=== PATIENT | female | born 1940 | race Caucasian/White ===

== ENCOUNTER 2018-11-25 12:37 | Emergency (ER) | payer MEDICARE, BC ==
[~2018-11-25] VITALS: Ht 165.1 cm; Wt 90.9 kg
[~2018-11-25 12:37] MED LIST: ASPI-1009 PO; ATOR10TA87 PO; COR3.125T PO; CYCL-1 PO; DIPH-423 PO; OMEP40CA37 PO; VALS40TA2 PO
--- NOTE | 2018-11-25 14:35 | NUR ---
C/O COUGH X 2 WEEKS. HAS BEEN TAKING COUGH MEDICATIONS WITHOUT RELIEF. WENT TO WALK-IN CLINIC ON SUNDAY AND HAS BEEN TAKING ANTIBIOTICS SINCE SUNDAY WITH OUT RELIEF. COUGHING UP YELLOW-WHITE PHLEGM. MILD SOB NOTED. HX WI IN 2012. HX HYPOTHYROID AND HTN.
[2018-11-25] MEDS ORDERED: ipratropium/albuterol 3ml nebule NEB ONE (14:55)
[2018-11-25] MEDS ORDERED: dexamethasone 4mg tablet PO ONE (14:55)
[2018-11-25] MEDS ORDERED: ALBU6.7H INH (15:28)
[2018-11-25] MEDS ORDERED: PRED20TA PO (15:28)
[2018-11-25] MEDS ORDERED: albuterol 2.5 MG/3 ML nebule CONTNEB PRN (15:30)
[2018-11-25] MEDS: benzonatate 100mg capsule PO ONE ×2 (16:56→17:07)
[2018-11-25 17:20] VITALS: BP 166/87
== END 2018-11-25 17:23 | disposition home or self-care (01) ==
LOC: ER 12:37
DX: J20.9 Acute bronchitis, unspecified (principal); E78.00 Pure hypercholesterolemia, unspecified; I10 Essential (primary) hypertension; E07.9 Disorder of thyroid, unspecified; Z88.2 Allergy status to sulfonamides; Z79.82 Long term (current) use of aspirin; Z79.899 Other long term (current) drug therapy
CPT/HCPCS: 71046; 93005; 94640; 94644; 94760; 99285; J8540; 99283

== ENCOUNTER 2019-02-26 11:17 | Inpatient (IN) | payer MEDICARE, BC ==
[~2019-02-26] VITALS: Ht 167.6 cm; Wt 90.9 kg
[~2019-02-26 11:17] MED LIST changes: +ALBU6.7H9 INH; +OMEP40CA13 PO; -OMEP40CA37 PO
--- NOTE | 2019-02-26 11:27 | NUR ---
CONSULTED DR. MCLEOD BEFORE ORDERS IN.
[2019-02-26 11:59] LABS: BASOPHILS # (AUTO) 0.1 X10'3 (0-0.2); BASOPHILS % (AUTO) 0.9 % (0-1); EOSINOPHILS # (AUTO) 0.2 X10'3 (0-0.9); EOSINOPHILS % (AUTO) 1.4 % (0-6); HEMATOCRIT 40.1 % (35.0-45.0); HEMOGLOBIN 13.6 g/dl (12.0-16.0); LYMPHOCYTES # (AUTO) 3.3 X10'3 (1.1-4.8); LYMPHOCYTES % (AUTO) 29.4 % (21-51); MEAN CORPUSCULAR HEMOGLOBIN 30.1 PG (27.0-31.0); MEAN CORPUSCULAR VOLUME 88.5 FL (78-98); MEAN PLATELET VOLUME 8.2 FL (7.4-10.4); MONOCYTES # (AUTO) 0.6 X10'3 (0-0.9); MONOCYTES % (AUTO) 5.6 % (2-12); NEUTROPHILS % (AUTO) 62.7 % (42-75); PLATELET COUNT 296 X10'3 (140-440); RED BLOOD COUNT 4.53 X10'6 (4.20-5.60); RED CELL DISTRIBUTION WIDTH 15.2 % (11.5-14.5); WHITE BLOOD COUNT 11.2 X10'3 (4.5-11.0)
[2019-02-26 12:14] LABS: ALANINE AMINOTRANSFERASE 22 U/L (12-78); ALBUMIN 3.3 G/DL (3.4-5.0); ALBUMIN/GLOBULIN RATIO 0.8 (1.1-1.5); ALKALINE PHOSPHATASE 173 IU/L (46-116); ANION GAP 10 (8-16); ASPARTATE AMINO TRANSFERASE 10 U/L (10-37); BILIRUBIN,TOTAL 0.2 MG/DL (0.1-1.0); BLOOD UREA NITROGEN 15 MG/DL (7-18); BUN/CREATININE RATIO 13.4 (6.6-38.0); CALCIUM 8.7 MG/DL (8.5-10.1); CHLORIDE 108 MMOL/L (99-107); CREATININE 1.12 MG/DL (0.40-0.90); GLUCOSE 127 MG/DL (70-104); SODIUM 144 MMOL/L (135-145); TOTAL CARBON DIOXIDE 25.8 MMOL/L (24-32); TOTAL PROTEIN 7.3 G/DL (6.4-8.2); eGFR 47 ML/MIN
[2019-02-26 12:17] LABS: PARTIAL THROMBOPLASTIN TIME 24 SECONDS (22-32); TROPONIN I < 0.04 NG/ML (0.0-0.05)
[2019-02-26] MEDS ORDERED: LEVO125T PO (13:10)
[2019-02-26] MEDS ORDERED: ATOR10TA70 PO (13:10)
--- NOTE | 2019-02-26 13:11 | NUR ---
TELE NEURO CONSULT INITIATED
--- NOTE | 2019-02-26 13:16 | NUR ---
PATIENT'S DAUGHTER'S PHONE NUMBER: [phone] WOULD LIKE TO BE CALLED IF PATIENT IS ADMITTED.
--- NOTE | 2019-02-26 17:35 | NUR ---
REPORT ATTEMPTED, FLOOR TO CALL BACK WHEN ROOM ASSIGNED RN
--- NOTE | 2019-02-26 17:50 | NUR ---
PT BEING TAKEN TO MRI
[2019-02-26 19:30] VITALS: BP 169/95
[2019-02-26] MEDS: levoTHYROXINE 125mcg tablet PO SCH (19:40)
[2019-02-26] MEDS: atorvastatin 20mg tablet PO SCH (20:30)
[2019-02-26] MEDS: aspirin 325mg tablet PO SCH (20:30)
[2019-02-26] MEDS ORDERED: FLU VACC QS2019-20(6MOS UP)/PF 60 MCG/0.5 ML SYRINGE IMVAC ONE (20:45)
[2019-02-26 22:28] VITALS: BP 145/84
[2019-02-27 03:00] VITALS: BP 173/84
[2019-02-27 06:00] VITALS: BP 183/87
--- NOTE | 2019-02-27 06:18 | NUR ---
Problems reprioritized. Patient report given, questions answered & plan of care reviewed with BOB Escobar.
[2019-02-27 06:20] LABS: BASOPHILS # (AUTO) 0.1 X10'3 (0-0.2); EOSINOPHILS # (AUTO) 0.2 X10'3 (0-0.9); EOSINOPHILS % (AUTO) 1.6 % (0-6); HEMATOCRIT 37.8 % (35.0-45.0); HEMOGLOBIN 12.9 g/dl (12.0-16.0); MEAN CORPUSCULAR HEMOGLOBIN 30.2 PG (27.0-31.0); MEAN CORPUSCULAR HGB CONC 34.2 g/dL (33.0-36.5); MEAN CORPUSCULAR VOLUME 88.2 FL (78-98); MEAN PLATELET VOLUME 8.5 FL (7.4-10.4); MONOCYTES # (AUTO) 0.6 X10'3 (0-0.9); MONOCYTES % (AUTO) 6.1 % (2-12); NEUTROPHILS # (AUTO) 5.8 X10'3 (1.8-7.7); NEUTROPHILS % (AUTO) 60.3 % (42-75); PLATELET COUNT 268 X10'3 (140-440); RED BLOOD COUNT 4.29 X10'6 (4.20-5.60); WHITE BLOOD COUNT 9.6 X10'3 (4.5-11.0)
--- NOTE | 2019-02-27 06:28 | NUR ---
Patient in room ORTHO 4010. I have received report from Ligia RN and Geoff RN and had the opportunity to ask questions and assume patient care.
[2019-02-27 06:39] LABS: ALBUMIN 2.9 G/DL (3.4-5.0); ANION GAP 8 (8-16); BLOOD UREA NITROGEN 16 MG/DL (7-18); CHLORIDE 110 MMOL/L (99-107); CREATININE 0.94 MG/DL (0.40-0.90); GLUCOSE 94 MG/DL (70-104); POTASSIUM 3.8 MMOL/L (3.5-5.1); SODIUM 145 MMOL/L (135-145); TOTAL CARBON DIOXIDE 26.7 MMOL/L (24-32); eGFR 57 ML/MIN
[2019-02-27 06:40] LABS: LDL CHOLESTEROL 76 MG/DL (50-100)
[2019-02-27] MEDS: aspirin 325mg tablet PO SCH (07:29)
[2019-02-27] MEDS: levoTHYROXINE 125mcg tablet PO SCH (07:29)
[2019-02-27] MEDS: atorvastatin 20mg tablet PO SCH (07:29)
[2019-02-27] MEDS ORDERED: pantoprazole 40mg Tablet.DR PO SCH (07:30)
[2019-02-27 10:00] VITALS: BP 140/83
--- NOTE | 2019-02-27 10:46 | NUR ---
Student documentation: I have reviewed all interventions, assessments performed and documented by [facility]. Student Medication Administration: For this medication-pass time frame, all medication were reviewed, dispensed, administered and documented per hospital policy by [facility].
[2019-02-27] MEDS ORDERED: ASPI-1 PO (14:55)
--- NOTE | 2019-02-27 16:30 | NUR ---
patient safe DC with family in personal vehicle.
== END 2019-02-27 15:30 | disposition home or self-care (01) | DRG 149 ==
LOC: ER 11:18 → ED HOLD 15:12 → ORTHO 4S 19:18
PROVIDERS: ADMIT Internal Medicine; ATTEND Internal Medicine
DX: R42 Dizziness and giddiness (principal); H57.02 Anisocoria; E03.9 Hypothyroidism, unspecified; E78.00 Pure hypercholesterolemia, unspecified; E78.5 Hyperlipidemia, unspecified; I10 Essential (primary) hypertension; I67.9 Cerebrovascular disease, unspecified; I73.9 Peripheral vascular disease, unspecified; K21.9 Gastro-esophageal reflux disease without esophagitis; R26.89 Other abnormalities of gait and mobility; Z88.2 Allergy status to sulfonamides; Z79.82 Long term (current) use of aspirin; Z79.899 Other long term (current) drug therapy; Z90.710 Acquired absence of both cervix and uterus; Z90.49 Acquired absence of other specified parts of digestive tract
CPT/HCPCS: 36415; 70450; 70544; 70547; 70551; 71045; 80048; 80053; 82948; 83721; 84484; 85025; 85610; 85730; 87081; 93005; 93306; 99285; G0378

== ENCOUNTER 2020-03-10 08:23 | Emergency (ER) | payer MEDICARE, BC ==
[~2020-03-10] VITALS: Ht 165.1 cm; Wt 90.9 kg
[~2020-03-10 08:23] MED LIST changes: -ALBU6.7H9 INH; +ASPI-1 PO; -ASPI-1009 PO; +ATOR10TA70 PO; -ATOR10TA87 PO; -COR3.125T PO; -CYCL-1 PO; -DIPH-423 PO; +LEVO125T PO; -VALS40TA2 PO
[2020-03-10 08:48] VITALS: BP 125/80
[2020-03-10] MEDS ORDERED: BENZ-16 PO (09:14)
[2020-03-10] MEDS ORDERED: ONDA4TAB6 PO (09:14)
== END 2020-03-10 09:33 | disposition home or self-care (01) ==
LOC: ER 08:24
DX: U07.1 COVID-19 (principal); R50.9 Fever, unspecified; R51.9 Headache, unspecified; R05 Cough; R11.0 Nausea; E78.00 Pure hypercholesterolemia, unspecified; I10 Essential (primary) hypertension; Z88.2 Allergy status to sulfonamides; Z79.82 Long term (current) use of aspirin; Z79.899 Other long term (current) drug therapy
CPT/HCPCS: 36415; 87635; 99283; C9803

== ENCOUNTER 2023-12-31 08:20 | Day surgery (SDC) | payer MEDICARE, BC ==
[~2023-12-31] VITALS: Ht 165.1 cm; Wt 87.2 kg
[~2023-12-31 08:20] MED LIST changes: -ASPI-1 PO; -ATOR10TA70 PO; +MULT-1085 PO; -OMEP40CA13 PO; +OMEP40CA21 PO; +ONDA4TAB6 PO
[2023-12-31 08:49] VITALS: BP 157/86; PULSE 74; RESP 20
[2023-12-31 09:35] VITALS: BP 125/77; PULSE 66; RESP 16; O2SAT 96
[2023-12-31] MEDS ORDERED: fentaNYL/PF 50MCG/1 ML 2ML syringe ONE (09:35)
[2023-12-31] MEDS ORDERED: midazolam 1 mg/ML 2ml injection ONE (09:35)
[2023-12-31 09:45] VITALS: BP 140/75; PULSE 66; RESP 14; O2SAT 96
[2023-12-31 09:55] VITALS: BP 154/88; PULSE 68; RESP 16; O2SAT 96
[2023-12-31 10:05] VITALS: BP 150/89; PULSE 67; RESP 14; O2SAT 96
== END 2023-12-31 10:15 | disposition home or self-care (01) ==
LOC: GI LAB 08:20
PROVIDERS: ATTEND Internal Medicine Gastroenterology
DX: R13.10 Dysphagia, unspecified (principal); K21.9 Gastro-esophageal reflux disease without esophagitis; K29.70 Gastritis, unspecified, without bleeding; I10 Essential (primary) hypertension; E11.9 Type 2 diabetes mellitus without complications; Z88.2 Allergy status to sulfonamides
CPT/HCPCS: 43239; A4620; J2250; J3010; J7030; Z7512; 88305; J7120

== ENCOUNTER 2024-02-13 15:02 | Emergency (ER) | payer MEDICARE, BC ==
[~2024-02-13] VITALS: Ht 165.1 cm; Wt 86.4 kg
[2024-02-13 15:12] VITALS: TEMP 98.4
[2024-02-13] MEDS ORDERED: HYDR-3965 PO (16:29)
[2024-02-13] MEDS: ondansetron/PF 4mg/2ml inj IV ONE (16:39)
[2024-02-13] MEDS: morphine 4 MG/ML inj SYRINge IV ONE (16:39)
[2024-02-13 16:52] VITALS: BP 159/85; PULSE 64; RESP 16; O2SAT 95
== END 2024-02-13 17:11 | disposition home or self-care (01) ==
LOC: ER 15:02
DX: S52.502A Unspecified fracture of the lower end of left radius, initial encounter for closed fracture (principal); S52.612A Displaced fracture of left ulna styloid process, initial encounter for closed fracture; E78.00 Pure hypercholesterolemia, unspecified; I10 Essential (primary) hypertension; E07.9 Disorder of thyroid, unspecified; Z88.2 Allergy status to sulfonamides; Z79.899 Other long term (current) drug therapy; W19.XXXA Unspecified fall, initial encounter; Y93.89 Activity, other specified; Y92.89 Other specified places as the place of occurrence of the external cause; Y99.8 Other external cause status
CPT/HCPCS: 29125; 73110; 96374; 96375; 99284; A4565; A6446; A6449; J2270; J2405